=== PATIENT | female | born 1950 | race Caucasian/White ===

== ENCOUNTER 2018-05-13 12:00 | Outpatient (RCR) | payer MEDICARE, BC, SELFPAY ==
--- NOTE | 2018-04-15 17:09 | HP.PTEVAL_ITS ---
Patient's Visit Information ELBA HOSKINS is a 67 year old F referred to Physical Therapy by PADDY OLIVEIRA with a diagnosis of RIGHT HIP TROCHANTERIC BURSITIS. Date of Evaluation: 04/15/18 Physical Therapist: Jordana Granda Visit Plan Frequency: 2-3x /Week Duration: 4-6 Weeks Plan: AQUATIC THERAPY FOR PAIN RELEIF, POSTURE CORRECTION/STRENGTHENING, INSTRUCTION IN APPROPRIATE BODY MECHANICS AND ACTIVITY MODIFICATIONS. DLS STARTING WITH A NEUTRAL SPINE PROGRESSING ROM TOLERATED. NADINE LE ROM, STRETCHING AND STRENGTHENING. HEP INSTRUCTION. PATIENT HAS A POOL AT HOME. - Subjective Subjective: Work/Leisure: RETIRED. DOES GARDENING. Disability: NO. Present symptoms: RIGHT LATERAL HIP PAIN BUT DOES HAVE NADINE GROIN PAIN THAT THE DOCTOR IS AWARE OF TOO. SHE REPORTS SHE HAS HAD THE BUSITIS FOR A LONG TIME BUT RECENTLY SHE HAS HAD PAIN ALL THE WAY DOWN HER RIGHT LEG INTO HER KNEE AND BELOW HER CALF. NOT INTO THE FOOT. NO RIGHT LE NUMBNESS OR TINGLING. Present since: ABOUT 4 - 5 YEARS AGO. Pain Scale: WORST 8/10, LEAST 0/10. Currently : 0/10 ITS NOT BOTHERING ME TODAY. Commenced as a result of: NO APPARENT REASON. Symptoms at onset: RIGHT LATERAL HIP. Worse: SITTING, LYING ON RIGHT SIDE. Better: BEING ON THE MOVE. Disturbed sleep: YES. Previous history/Previous treatment: PATIENT REPORTS SHE HAS JUST SELF MANAGED HER RIGHT HIP PAIN WITH TYLONOL. NO BACK SURGERY. NO HIP SURGERY. NO BACK INJECTIONS AND NO HIP INJECTIONS. NO SIGNIFICANT CHIROPRACTIC HISTORY. Coughing/sneezing/straining: NEGATIVE. Gait: NOT CURRENTLY USING ANY ASSISTIVE DEVICES. Difficulty initiating urinatin: NO. Accidents: NO. Unexplained weight loss: NO. Imaging: RIGHT HIP X-RAY - SOME ARTHRITIS IN PELVIS AND BURSITIS PER PATIENT REPORT. ORDERED BY PADDY OAKES. PMH : AUTOIMMUNE HEPETITIS WITH SIDE EFFECTS - HISTORY OF TOTAL LIVER FAILURE AUG 2017. SOMETIMES HAS TROUBLE WITH GAIT AND USES CANE NEEDED. CAT SCAN WAS CLEAN 2 WEEKS AGO OF BRAIN PER PATIENT REPORT. NEUROLOGIST CONSULT PENDING IN APRIL 2018. 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 3 YEARS AGO HAD 23 LYMPH NODES REMOVED WITH CANCER SURGERY. PATIENT REPORTS SHE TIRES VERY EASILY. STATES SHE HAS A POOL BUT SHE DOESN'T KNOW WHAT EX'S TO REALLY DO. - Objective Sitting/Standing Posture: POOR. Lordosis: NORMAL. Lateral shift: NO. Relevant shift: N/A. Other Observations: INDEP GAIT INTO PT WITHOUT AD OR GROSS DEVIATIONS NOTED TODAY. PATIENT REPORTS THAT THIS IS A GOOD. ABLE TO CUT TWO ACHES OF GRASS TODAY. INDEP TRANSFERS SIT TO STAND WITHOUT UE ASSIST. UPON DEPARTURE, PATIENT LOST HER BALANCE MOMENTARILY AND REGAINED HER BALANCE INDEP' LY. Motor deficit: NADINE LE STRENGTH IS 5/5 WITH MMT'ING EXCEPT HIPS GRADED 4/5 ON THE LEFT AND 4-/5 ON THE RIGHT. Sensory deficit: NO. ROM deficit: MILD TIGHTNESS OF RIGHT HIP ALL PLANES COMPARED TO LEFT AND ERP WITH ROM TESTING OF RIGHT HIP BUT NOT LEFT. Reflexes: NADINE LE'S 1/3. Dural Signs: NEGATIVE NADINE LE 'S. Lumbar mvmt loss: flex - MIN. ext - MOD. R SG - MOD. L SG - MOD. PATIENT DENIES INCREASED PAIN IN HIP OR ANY NEW PAIN WITH LUMBAR ROM TESTING. Core strength: POOR. Palpation: NO ACUTE LUMBAR TENDERNESS. SHE DOES HAVE GREATER TROCH REGION AND TFL REGION PAIN DOWN ALONG THE IT BAND WELL ON THE RIGHT. OTHER: POSITIVE RIGHT AND NEGATIVE LEFT FRANCISCO TESTS. - Goals Goal 1:: DECREASE C/O RIGHT LE PAIN Goal Time Frame: 4-6 Weeks Goal 2:: IMPROVE SITTING AND RIGHT SDLYING FUNCTION Goal Time Frame: 4-6 Weeks Goal 3:: INSTRUCT IN PROPHYLAXIS/INDEP HEP Goal Time Frame: 4-6 Weeks - Rehabilitation Potential Rehabilitation Potential: Good - Anticipated Interventions Patient/Client Instruction: Educate patient on: Condition, Plan of Care, Risk Factors, Benefits of Fitness Program For the Purpose of:: To improve self management Therapeutic Exercise to Include: Strength training, Body mechanics, Postural training, Flexibilty training, In an aquatic setting, Active ROM, Dynamic Lumbar Stabilization For the Purpose of:: To decrease pain, To increase ROM, To improve muscle performance and motor function, To increase tolerance to activity/condition/ position Thank you for the opportunity to evaluate your patient. For Medicare and Medicare HMO plans, please review the plan of care and approve it. It will need to be FAXED BACK to us at [phone] for Medicare purposes. Please let me know if there are questions or concerns regarding this plan of care. Physician Signature: Date:
--- NOTE | 2018-05-13 12:37 | HP.PTDCSUM ---
HP - PT D/C Summary It has been my pleasure to treat ELBA HOSKINS under orders from PADDY OLIVEIRA, for the diagnosis of RIGHT HIP TROCHANTERIC BURSITIS for a total of 8 visit(s). Discharge Date: 05/13/18 Please see the following information for a summary of their discharge status. - Subjective Subjective: PATIENT REPORTS IT REALLY DOESN'T HURT MUCH IT DID. EVEN TO PRESS ON IT IT IS BETTER. PATIENT REPORTS SHE DOES NOT FEEL LIKE SHE NEEDS ANY MORE FORMAL PT AND SHE HAS PURCHASED EQUIPMENT ([employer]) TO CONTINUE THE EX'S SHE HAS LEARNED IN THE POOL ON HER OWN. PATIENT REPORTS SHE HAS LEARNED ABOUT POSTURE TOO. PATIENT REPORTS SHE IS NO LONGER LOSING HER BALANCE. - Pain RLE Pain Intensity (Out of 10): 0 - Overall Improvement % Improvement: 90 - Objective Objective/Function: ALL GOALS MET EXCEPT RIGHT SDLY STILL PROVOKES A LOT OF PAIN. PATIENT IS INDEP WITH A POOL EX PROGRAM. INDEP GAIT INTO PT WITH NO GROSS DEVIATIONS NOTED. Motor deficit: NADINE LE STRENGTH IS 5/5 WITH MMT'ING EXCEPT HIP GRADED 4/5 ON THE RIGHT. ROM deficit: MILD TIGHTNESS OF RIGHT HIP ALL PLANES COMPARED TO LEFT AND ERP WITH ROM TESTING OF RIGHT HIP BUT NOT LEFT. Lumbar mvmt loss: flex - NIL. ext - MOD. R SG - MIN. L SG - MIN. PATIENT DENIES INCREASED PAIN IN HIP OR ANY NEW PAIN WITH LUMBAR ROM TESTING. OTHER: POSITIVE RIGHT AND NEGATIVE LEFT FRANCISCO TESTS. PATIENT'S LEFS HAS IMPROVED FROM 67 TO 75. - Goals Goal 1:: DECREASE C/O RIGHT LE PAIN Goal Progress: Goal Met Goal 2:: IMPROVE SITTING AND RIGHT SDLYING FUNCTION Goal Progress: Not Progressing Goal 3:: INSTRUCT IN PROPHYLAXIS/INDEP HEP Goal Progress: Goal Met - Plan Plan: D/C TO INDEP WATER EX PROGRAM. PATIENT AGREEABLE. - D/C Information If there are questions or concerns regarding this patient's physical therapy, please feel free to call me at [phone]. Thank you for the referral of this patient. Sincerely, Jordana Marie
== END 2018-05-13 19:00 | disposition home or self-care (01) ==
LOC: PT 12:00
DX: M54.17 Radiculopathy, lumbosacral region (principal)
CPT/HCPCS: 97113; 97162; 97164; 97530

== ENCOUNTER 2021-02-14 13:00 | Outpatient (RCR) | payer MEDICARE, BC, SELFPAY ==
--- NOTE | 2021-01-20 17:24 | HP.PTEVAL_ITS ---
Patient's Visit Information ELBA HOSKINS is a 70 year old F referred to Physical Therapy by HOLLY MCKEON with a diagnosis of aftercare L KAROLINA. Date of Evaluation: 01/20/21 Physical Therapist: Rene Thomas, [place], OCS, CSCS - Visit Plan Frequency: 2x /Week Duration: 4-6 Weeks Plan: 2x/week for 3-6 weeks for. 1. ext rotation ROM. 2. quad rollout and stretch. 3. strength progression L hip home and gym to silver sneakers I when tolerated. Gait and stair training as pain allows. - Subjective L KAROLINA 11/29/20, [place] like a floppy fish and told doctor soemthing was wrong. Almost fell coming out of bathroom at hospital. Femur was broken. Passed out due to pain. X ray that night showed fracture. the following day they did a hip revision and bands around femur. In hospital 6 days. Had PT and OT at home and saw doctor 12/17 and everything was good. Is FWB(after intiial 25%). Using cane to get around but can go without it(balance). Approach is posteriolateral. HEP: AP, QS, GS, windshield wipers, stadning marching, abd, knee flexion daily . Pain level is 1/10 at rest. Up to 5/10 with lots of WB. Is allowed to drive adn went to a few stores one day and it ached. was out for a few hours. Sleep is not great but not due to pain, sometimes discomfort, has insomnia. Basic at home are OK, uses shower chair and has to step over tub. Lives with who is home alot. Two story with first floor bedroom adn 3 steps with railing to enter. Doing OK on steps.Dresses self. Trouble with pants on L foot and L shoe and sock. helps. Precuations; abduction, careful with Fw bending. Hobbies: not limping(limped prior for long time), Crafty and can do that now. Wants to get back to gym which she used to do. - Pain L hip Pain Intensity (Out of 10): 1 Pain Intensity Range: 0, 7 - Objective L antalgia in gait with mild trenelenberg without cane adn slow but safe on firm flat surface. Better with cane , takes a wide KANG. Trasnfers I with UE. Steps using R only, L is painful 4/10, needs rail. Balance is fair. TUG 16 sec. 49 womac. Incision has mild scarring and slight edematous mid scar. R LE AROM and strength WFL 4/5. L hip AROM 5 ext rotation and 0 IR, 90 flexion, neutral ext 15 abduction. Passive numbers are better but still limited eext rotation to 10. strength 3+ hip abd and ext, 3+ flexion on L. knee ext painful and 4- adn flexion 4-. ankle strength is 4+ and aROM WFL. sensation L WNL to gross light touch. reflexes 2/3 patella adn achilles. - Balance Scores Functional Gait Assessment Score: 22 % Disability: 26.6700 - Goals Goal 1:: Walks and climb steps with one rail without pain or antalgia Goal Time Frame: 4-6 Weeks Goal 2:: LEFS 50/80 Goal Time Frame: 4-6 Weeks Goal 3:: Pt feel 90% back to normal activities Goal Time Frame: 4-6 Weeks Goal 4:: Get shoes on without difficulty. Goal Time Frame: 4-6 Weeks Goal 5:: I approp gym ex for silver sneakers routine strength. Goal Time Frame: 4-6 Weeks - Rehabilitation Potential Physical Therapy Diagnosis: L KAROLINA with limited functional mobility/strength. Rehabilitation Potential: Good - Anticipated Interventions Patient/Client Instruction: Educate patient on: Condition, Plan of Care For the Purpose of:: To decrease pain, To increase ROM Therapeutic Exercise to Include: Strength training, Flexibilty training, Gait and locomotor training, Active ROM For the Purpose of:: To decrease pain, To increase ROM, To improve muscle performance and motor function, To increase tolerance to activity/condition/position, To improve safety with gait Manual Therapy Techniques to Include: Passive ROM For the Purpose of:: To decrease pain Cryotherapy (ice pack, ice massage): Yes For the Purpose of:: To decrease swelling/inflammation Thank you for the opportunity to evaluate your patient. For Medicare and Medicare HMO plans, please review the plan of care and approve it. It will need to be FAXED BACK to us at [phone] for Medicare purposes. For Medicare only, by signing this I certify the plan of care. Please let me know if there are questions or concerns regarding this plan of c are. Physician Signature: Date:
--- NOTE | 2021-02-22 10:44 | HP.PT.NRP ---
ELBA HOSKINS was seen in my office for initial evaluation on 01/20/21. The following Plan of Care was established for this patient: Initial Frequency: 2x /Week Initial Duration: 4-6 Weeks Patient/Client Instruction: Educate patient on: Condition, Plan of Care For the Purpose of:: To decrease pain, To increase ROM Therapeutic Exercise to Include: Strength training, Flexibilty training, Gait and locomotor training, Active ROM For the Purpose of:: To decrease pain, To increase ROM, To improve muscle performance and motor function, To increase tolerance to activity/condition/position, To improve safety with gait Manual Therapy Techniques to Include: Passive ROM For the Purpose of:: To decrease pain Cryotherapy (ice pack, ice massage): Yes For the Purpose of:: To decrease swelling/inflammation This patient was last seen in our office 02/14/21. Pertinent comments regarding their Physical therapy will appear below: Pt seen 7 visits of POC adn was feeling nearly 100% better but wished to have 4 more visits for progression to gym I progrram. She called to cancel those stating she feels much better adn apparently changed her mind on the gym program. I will discontinue at this time at her request. At this point I will be discontinuing this patient from physical therapy. I would be happy to see this patient again in the future if found appropriate by the physician. Thank you! Rene Thomas, DPT, OCS, CSCS
== END 2021-02-14 19:00 | disposition home or self-care (01) ==
LOC: PT 13:00
PROVIDERS: PCP Family Medicine
DX: Z47.1 Aftercare following joint replacement surgery (principal)
CPT/HCPCS: 97110; 97140; 97162; 97530